=== PATIENT | male | born 1975 | race Caucasian/White ===

== ENCOUNTER 2023-03-22 10:28 | Emergency (ER) | payer MEDICAID, OTHER ==
[~2023-03-22] VITALS: Ht 177.8 cm; Wt 88.0 kg
[2023-03-22] MEDS ORDERED: KETOROLAC TROMETHAMINE INJ 30 MG/ML VIAL IV ONE (11:00)
[2023-03-22] MEDS ORDERED: dexaMETHasone SOD PHOSPHATE 10 MG/ML VIAL IV ONE (11:00)
[2023-03-22] MEDS ORDERED: MORPHINE SULFATE INJ 2 MG/ML DISP.SYRIN IV ONE (11:00)
[2023-03-22] MEDS ORDERED: ONDANSETRON HCL/PF 4 MG/2 ML VIAL IV ONE (11:00)
[2023-03-22] MEDS ORDERED: KETOROLAC TROMETHAMINE INJ 30 MG/ML VIAL ONE (11:10)
[2023-03-22] MEDS ORDERED: ONDANSETRON HCL/PF 4 MG/2 ML VIAL ONE (11:10)
[2023-03-22] MEDS ORDERED: MORPHINE SULFATE INJ 4 MG/ML DISP.SYRIN ONE (11:10)
[2023-03-22] MEDS ORDERED: dexaMETHasone SOD PHOSPHATE 10 MG/ML VIAL ONE (11:10)
[2023-03-22] MEDS ORDERED: LIDO30AD10 TP (11:22)
[2023-03-22] MEDS ORDERED: PRED20TA PO (11:22)
[2023-03-22] MEDS ORDERED: HYDR-4303 PO (11:22)
[2023-03-22] MEDS ORDERED: IBUP-1955 PO (11:22)
[2023-03-22 12:08] VITALS: BP 141/71; TEMP 98; O2SAT 100
== END 2023-03-22 12:09 | disposition home or self-care (01) ==
LOC: ER 10:37
DX: M54.12 Radiculopathy, cervical region (principal); M50.30 Other cervical disc degeneration, unspecified cervical region; F17.200 Nicotine dependence, unspecified, uncomplicated
CPT/HCPCS: 99284; 96374; 96375; J1100; J2270; J1885; J2405